=== PATIENT | female | born 1975 | race Caucasian/White ===

== ENCOUNTER 2017-07-04 19:31 | Emergency (ER) | payer BC ==
[2017-07-04] MEDS ORDERED: NS 0.9% 1000 ML* 1,000 ML IV ONE (20:00)
[2017-07-04] MEDS ORDERED: Pantoprazole IV* 40 MG IV ONE (20:02)
[2017-07-04] MEDS ORDERED: Al Hydrox/Mg Hydrox/Simet LIQ* 30 ML UDC PO ONE (20:03)
[2017-07-04] MEDS ORDERED: Lidocaine 2% VISCOUS* 15 ML UDC PO ONE (20:03)
[2017-07-04 20:26] LABS: ABS Basophils 0 10^3/ul (0-0.2); ABS Eosinophils 0.2 10^3/ul (0-0.6); ABS Lymphocytes 0.9 10^3/ul (1.0-4.8); ABS Monocytes 0.4 10^3/ul (0-0.8); ABS Neutrophils 4.4 10^3/ul (1.5-7.7); ABS Nucleated RBC 0 10^3/ul; Eosinophil % 2.8 % (0-6); Hematocrit 37 % (35-47); Hemoglobin 12.4 g/dl (12.0-16.0); Lymphocyte % 14.7 % (25-47); Mean Corpuscular HGB Conc 34 g/dl (31-36); Mean Corpuscular Hemoglobin 29 pg (27-31); Mean Corpuscular Volume 85 fL (80-97); Mean Platelet Volume 10 um3 (7.4-10.4); Nucleated Red Blood Cells % 0; Platelet Count 206 10^3/ul (150-450); Red Blood Count 4.35 10^6/ul (4.0-5.4); Red Cell Distribution Width 13 % (10.5-15); White Blood Count 5.9 10^3/ul (3.5-10.8)
[2017-07-04 20:41] LABS: EGFR Non-African American 81.8 (>60)
[2017-07-04 20:47] LABS: INR 0.98 (0.77-1.02)
--- NOTE | 2017-07-04 20:51 | RAD ---
INDICATION: Chest pain COMPARISON: Chest x-ray dated January 06, 2011 TECHNIQUE: Single AP portable view of the chest was obtained. FINDINGS: Image quality is compromised due to the relative inferiority of a portable chest x-ray. The heart and mediastinum exhibit normal size and contour. The lungs are grossly clear. There is no evidence of a large pleural effusion. Visualized bones are normal for the patient's age. IMPRESSION: No radiographic evidence for acute cardiopulmonary abnormality on this portable chest x-ray.
[2017-07-04] MEDS ORDERED: diPHENhydraMINE IV* 50 MG/ML 1 ml VIAL (BENADRYL) IV ONE (23:20)
[2017-07-04] MEDS ORDERED: Metoclopramide IV* 5 MG/ML 2 ML VIAL IV SLOW PU ONE (23:20)
[2017-07-04] MEDS ORDERED: Ketorolac INJ* 30 MG/ML 1 ML VIAL IV PUSH ONE (23:20)
[2017-07-05 00:54] VITALS: BP 142/61
--- NOTE | 2017-07-05 03:53 | ED ---
Grabiel Pike Nikita, scribed for Mariaelena Castillo MD on 07/04/17 at 1948 . HPI Chest Pain - HPI Summary HPI Summary: This patient is a 41 year old F BIBA to ED from [facility] with a chief complaint of CP since 1700 earlier today s/p waking up. The CC is described as aching, like someone punched me right there has alleviated slightly since onset. The patient rates the pain 5/10 in severity. Symptoms alleviated by nothing. Patient reports diaphoresis, palpitations, dizziness (pt went to get a drink of water when she felt dizzy), L shoulder pain, L neck pain, tingling in her hands , and BETNLEY. Pt was given ASA and NTG CHEF ASSISTANT. Pt does not take BCP. - History of Current Complaint Chief Complaint: EDChestPainROMI Time Seen by Provider: 07/04/17 19:45 Hx Obtained From: Patient Hx Last Menstrual Period: 2 WEEKS AGO Onset/Duration: Started Hours Ago, Still Present Timing: Constant Initial Severity: Moderate Current Severity: Moderate Pain Intensity: 5 Pain Scale Used: 0-10 Numeric Chest Pain Location: Diffuse Chest Pain Radiates: Yes Chest Pain Radiates To:: Other - L shoulder and L neck Character: Dull/Aching, Other: - "someone punched me right there" Aggravating Factor(s): Nothing Alleviating Factor(s): Other: - alleviated slightly by spontaneous resolution Associated Signs and Symptoms: Positive: Other: - Patient reports diaphoresis, palpitations, dizziness (pt went to get a drink of water when she felt dizzy), L shoulder pain, L neck pain, tingling in her hands, and BENTLEY. - Allergy/Home Medications Allergies/Adverse Reactions: Allergies Allergy/AdvReac Type Severity Reaction Status Date / Time No Known Allergies Allergy Verified 12/29/15 22:04 PMH/Surg Hx/FS Hx/Imm Hx Endocrine/Hematology History: Denies: Hx Diabetes, Hx Thyroid Disease Cardiovascular History: Denies: Hx Congestive Heart Failure, Hx Deep Vein Thrombosis, Hx Hypertension , Hx Myocardial Infarction, Hx Pacemaker/ICD Respiratory History: Denies: Hx Asthma, Hx Chronic Obstructive Pulmonary Disease (COPD), Hx Lung Cancer, Hx Pneumonia, Hx Pulmonary Embolism GI History: Denies: Hx Gall Bladder Disease, Hx Gastrointestinal Bleed, Hx Ulcer, Hx Urosepsis History: Denies: Hx Kidney Stones, Hx Renal Disease Neurological History: Denies: Hx Dementia, Hx Migraine, Hx Seizures, Hx Transient Ischemic Attacks (TIA) Psychiatric History: Denies: Hx Anxiety, Hx Depression, Hx Schizophrenia, Hx Bipolar Disorder Infectious Disease History: No Infectious Disease History: Reports: Hx Shingles Denies: Traveled Outside the [place] in Last 30 Days - Family History Known Family History: Positive: Cardiac Disease, Hypertension - Social History Alcohol Use: Occasionally Substance Use Type: Reports: None Smoking Status (MU): Never Smoked Tobacco Review of Systems Positive: Skin Diaphoresis Positive: Palpitations, Chest Pain - radiating to L shoulder and L neck Neurological: Other - dizziness, tingling in her hands Positive: Headache All Other Systems Reviewed And Are Negative: Yes Physical Exam - Summary Physical Exam Summary: VITAL SIGNS: Reviewed. GENERAL: ~Patient is a well-developed and nourished FEMALE who is lying comfortable in the stretcher. Patient is not in any acute respiratory distress. HEAD AND FACE: No signs of trauma. No ecchymosis, hematomas or skull depressions. No sinus tenderness. EYES: PERRLA, EOMI x 2, No injected conjunctiva, no nystagmus. EARS: Hearing grossly intact. Ear canals and tympanic membranes are within normal limits. MOUTH: Oropharynx within normal limits. NECK: Supple, trachea is midline, no adenopathy, no JVD, no carotid bruit, no c- spine tenderness, neck with full ROM. CHEST: Symmetric, no tenderness at palpation LUNGS: Clear to auscultation bilaterally. No wheezing or crackles. CVS: Regular rate and rhythm, S1 and S2 present, no murmurs or gallops appreciated. ABDOMEN: Soft, non-tender. No signs of distention. No rebound no guarding, and no masses palpated. Bowel sounds are normal. EXTREMITIES: FROM in all major joints, no edema, no cyanosis or clubbing. NEURO: Alert and oriented x 3. No acute neurological deficits. Speech is normal and follows commands. Pt is somewhat anxious. SKIN: Dry and warm Triage Information Reviewed: Yes Vital Signs On Initial Exam: Initial Vitals Temp Pulse Resp BP Pulse Ox 97.8 F 88 18 114/79 100 07/04/17 19:32 07/04/17 19:32 07/04/17 19:32 07/04/17 19:32 07/04/17 19:32 Vital Signs Reviewed: Yes - Mary Coma Scale Coma Scale Total: 15 Diagnostics - Vital Signs Vital Signs Temp Pulse Resp BP Pulse Ox 07/04/17 19:41 92 15 99 07/04/17 19:32 97.8 F 88 18 114/79 100 - Laboratory Result Diagrams: 07/04/17 20:20 07/04/17 20:20 Lab Statement: Any lab studies that have been ordered have been reviewed, and results considered in the medical decision making process. - Radiology CXR Radiology Interpretation Completed By: Radiologist - No radiographic evidence for acute cardiopulmonary abnormality on this portable chest x-ray. ED physician reviewed this radiology report. - EKG 1936 Cardiac Rate: NL EKG Rhythm: Sinus Rhythm - 86 bpm EKG Interpretation: Normal axis. Normal interval. No ischemic changes. Chest Pain Course/Dx - Course Assessment/Plan: This patient is a 41 year old F BIBA to ED from [facility] with a chief complaint of CP since 1700 earlier today s/p waking up. Patient reports diaphoresis, palpitations, dizziness (pt went to get a drink of water when she felt dizzy), L shoulder pain, L neck pain, tingling in her hands, and BENTLEY. Pt will be discharged with instructions to follow up with her PCP in 1-2 days and recommendation to take a stress test as an outpatient as soon as possible. Pt is agreeable with this plan. - Chest Pain Differential Diagnosis/HQI/PQRI: Other: - atypical CP - Diagnoses Provider Diagnoses: Atypical chest pain Discharge - Discharge Plan Condition: Stable Disposition: HOME Referrals: [facility] [Provider Group] (Follow up with your PCP in 1-2 days. ) Additional Instructions: Recommended to take a stress test as an outpatient as soon as possible. RETURN TO EMERGENCY DEPARTMENT FOR ANY NEW OR WORSENING SYMPTOMS. The documentation as recorded by the Grabiel tran Nikita accurately reflects the service I personally performed and the decisions made by , Mariaelena Castillo MD.
== END 2017-07-05 02:25 | disposition home or self-care (01) ==
LOC: ED 19:31
DX: R07.89 Other chest pain (principal); R42 Dizziness and giddiness; R00.2 Palpitations; M25.512 Pain in left shoulder
CPT/HCPCS: 36415; 71045; 80053; 83735; 84484; 85025; 85610; 85730; 93005; 99283; A9270-GY; J1200; J1885; J2765